=== PATIENT | male | born 1990 | race Caucasian/White ===

== ENCOUNTER 2020-05-21 15:28 | Emergency (ER) | payer OTHER, SELFPAY ==
[2020-05-21 15:30] VITALS: BP 160/111; PULSE 111; RESP 17; TEMP 36.7; O2SAT 95; BMI 40.5
[2020-05-21 15:45] VITALS: BP 163/104; PULSE 113; RESP 21; O2SAT 97
--- NOTE | 2020-05-21 15:46 | EKG12_ITS ---
Test Reason : CP Blood Pressure : / mmHG Vent. Rate : 112 BPM Atrial Rate : 112 BPM P-R Int : 158 ms QRS Dur : 080 ms QT Int : 330 ms P-R-T Axes : 055 070 047 degrees QTc Int : 450 ms Sinus tachycardia Nonspecific ST and T wave abnormality Abnormal ECG Confirmed by TOMMY ANDRADE, JOSE LUIS ([id number]), editorial assistant CURT ASTORGA ([id number]) on 05/28/2020 9:13:38 AM Referred By: EMILY Confirmed By:PINO SANDERS MD
--- NOTE | 2020-05-21 15:47 | NURSING ---
NO OLD EKGS
--- NOTE | 2020-05-21 15:48 | ED.VIS.GEN ---
History of Present Illness Chief Complaint: Chest Pain Informant: Patient Onset: Weeks Context: Sudden Onset Timing: Intermittent Quality: Pain, pressure and tightness Location: Mid to left chest Current Severity: Mild Maximum Severity: Moderate Worsened by: Nothing specific Relieved by: Better with activity Associated Symptoms: Anxiousness, dyspnea Narrative: Patient is 30-year-old male has not seen a physician in some time. He reports a 60 pound weight gain over a year.. He is not been as active. He denies history of VTE. He denies leg pain, swelling discoloration. He reports a discomfort in his chest best described as a tight pressure sensation from the mid to left chest. There is no radiation to the back, neck, jaw or shoulders. He does report shortness of breath. [place] orthopnea or PND. He denies any infectious symptoms and denies specifically contact with anyone with Covid. His speech is slightly slurred. Asked if he has been drinking today. He states he may have a buzz. He does admit to 1 glass of wine a day. He denies history of alcoholic liver disease or pancreatitis. He denies black or maroon stool. He denies mucus or blood in his stool. Prior similar symptoms: No Recent Illness/Hospitalization: No - Past Medical History (1) No significant past medical history Status: Acute Past Medical History - Allergies and Home Meds Allergies/Adverse Reactions: Allergies No Known Allergies Allergy (Verified 05/21/20 15:29) Primary Care Physician: Kade Pires III, MD [Primary Care Provider] - Prior records reviewed: No Past Medical History: None Surgical History: no surgical history Lives: Alone Smoking Status: Smoker, status unknown Alcohol: Occasional Drugs: None Physical Exam Vital Signs/Narrative: Vital Signs Temp Pulse Resp BP Pulse Ox 05/21/20 15:45 113 H 21 H 163/104 H 97 05/21/20 15:30 98.1 F 111 H 17 160/111 H 95 Inital Vital Signs reviewed: Yes General: Well nourished, Well developed, Obese Head: Normocephalic, Atraumatic Eyes: Perrl, EOMI. Negative for: Pale conjunctiva, Scleral icterus ENT: No rhinorrhea, TM's clear Neck: Supple, Nontender, No lymphadenopathy, No JVD Cardiovascular: Regular rhythm, No murmurs, Normal S1, Normal S2, Tachycardia Respiratory: No distress, CTA bilaterally, Chest nontender, - - Patient's respiratory rate is 22-28. Abdomen: Soft, Nontender, Nondistended, Normal bowel sounds, No masses Rectal: Deferred Back: Nontender, Normal Inspection Extremities: Nontender, No edema, - - There is no asymmetry, swelling, discoloration, leg vein distention, palpable cords or tenderness along the distribution of the deep venous system.. Negative for: Tenderness Skin: Normal color, No rash, No Trauma. Negative for: Cyanosis, Diaphoresis, Jaundice Neurological: Alert, Oriented x3, Cranial nerves II-XII grossly intact, Normal Strength, Normal Sensation Psychological: Normal affect Diagnostic/Tx/Re-eval Chest X-Ray - ED: 2 View, Read by ED Physician, Normal, Heart, Lungs, Mediastinum, Bony Structures, No Acute Disease, - - 2 view chest x-ray was interpreted by me at 1610. Impressions Chest X-Ray 05/21/20 16:05 IMPRESSION: Normal x-ray examination of the chest. Electronically Signed: Flory Roy, at 16:18 EST Tel , Service support , 05/21/20 16:05 Chest PA and Lateral [RAD] Stat Laboratory Results 05/21/20 05/21/20 05/21/20 15:59 15:59 15:59 WBC 6.4 RBC 5.31 Hgb 16.9 H Hct 47.7 MCV 89.8 MCH 31.8 MCHC 35.4 RDW Std Deviation 39.3 RDW Coeff of Addison 12.1 Plt Count 236 MPV 10.2 Immature Gran % (Auto) 0.200 Neut % (Auto) 51.8 Lymph % (Auto) 37.2 [place] % (Auto) 8.1 Eos % (Auto) 1.9 Baso % (Auto) 0.8 Absolute Neuts (auto) 3.3 Absolute Lymphs (auto) 2.38 Nucleated RBC % 0 D-Dimer Quant (PE/DVT) 0.44 Sodium 140 Potassium 3.2 L Chloride 103 Carbon Dioxide 24.0 Anion Gap 13 BUN 7 Creatinine 0.89 Estim Creat Clear Calc 142.39 Est GFR (MDRD) Af Amer 130 Est GFR (MDRD) Non-Af 108 BUN/Creatinine Ratio 7.9 L Glucose 136 H Calcium 8.8 Total Bilirubin 0.90 AST 125 H ALT 149 H Alkaline Phosphatase 169 H Troponin I < 0.015 B-Natriuretic Peptide Total Protein 7.8 Albumin 3.7 Globulin 4.1 Albumin/Globulin Ratio 0.9 Lipase 111 05/21/20 15:59 WBC RBC Hgb Hct MCV MCH MCHC RDW Std Deviation RDW Coeff of Addison Plt Count MPV Immature Gran % (Auto) Neut % (Auto) Lymph % (Auto) [place] % (Auto) Eos % (Auto) Baso % (Auto) Absolute Neuts (auto) Absolute Lymphs (auto) Nucleated RBC % D-Dimer Quant (PE/DVT) Sodium Potassium Chloride Carbon Dioxide Anion Gap BUN Creatinine Estim Creat Clear Calc Est GFR (MDRD) Af Amer Est GFR (MDRD) Non-Af BUN/Creatinine Ratio Glucose Calcium Total Bilirubin AST ALT Alkaline Phosphatase Troponin I B-Natriuretic Peptide 2.9 Total Protein Albumin Globulin Albumin/Globulin Ratio Lipase Was informed of his blood test. BNP is 2.9. This would indicate no evidence of heart failure. Troponin is normal. D-dimer was normal. This rules out cardiac ischemia and PE. Patient's liver enzymes are elevated and most likely due to the fact that he drinks on a regular basis. - EKG Initial EKG Interpretation: Sinus Tachycardia - Sinus tachycardia with a ventricular rate of 112. UT interval 108 ms. QRS duration 86 ms. QT duration 330 ms. [place] is normal. There is nonspecific ST-T wave changes noted predominantly in the anterior leads. There is also artifact noted throughout. He has a biphasic T wave in V3 through V5. - Medical Decision Making Differential diagnosis includes cardiac etiology and cardiac ischemia, pulmonary embolus, pulmonary hypertension, noncardiac etiology which would include pulmonary GI. EKG, chest x-ray, troponin and appropriate labs were obtained. Patient's blood pressure is elevated. He states he was in a long-term relationship and his brother did make, he snores. Plan is to start hydrochlorothiazide and follow-up with In 1 to 3 weeks for recheck. ED Disposition - Plan for ED Patient: Disposition: Home or Assisted Living Diagnosis: Hypertension, essential, Sinus tachycardia by electrocardiogram, Left-sided chest pain, Elevated liver transaminase level Prescriptions: Hydrochlorothiazide [Hctz] 12.5 mg PO DAILY #30 tab Transmission Status: [facility] [facility] Referrals: Kade Pires III, MD [Primary Care Provider] - 1-2 Weeks Additional Instructions: 1. It is in your best interest to add no salt to your food and decrease salt when cooking 2. It is in your best interest to lose weight. 3. If you have any new or concerning symptoms please return to the emergency department
--- NOTE | 2020-05-21 16:05 | RAD_ITS ---
STUDY: X-RAY CHEST REASON FOR EXAM: Male, 30 years old. chest pressure and dyspnea TECHNIQUE: Frontal and lateral views of the chest. COMPARISON: None. FINDINGS: The lungs are clear and expanded. There is no demonstrated pleural abnormality. Normal size heart. Normal mediastinum and cholo. Normal visualized pulmonary arteries. Normal visualized aortic arch and descending thoracic aorta. Normal visualized thoracic spine. Normal visualized ribs, clavicles, and shoulders. There is no demonstrated abnormality of the visualized soft tissue structures of the upper abdomen. RAD/Chest PA and Lateral IMPRESSION: Normal x-ray examination of the chest. Electronically Signed: Flory Roy, at 16:18 EST Tel , Service support ,
[2020-05-21 16:15] LABS: Absolute Lymphocyte Count 2.38 X10^3/uL (0.83-4.51); Absolute Neutrophil Count 3.3 X10^3/uL (2.0-7.7); Basophil# 0.05 X10^3/uL; Basophil% 0.8 % (0-1); Eosinophil# 0.12 X10^3/uL; Eosinophils% 1.9 % (0-5); Hematocrit 47.7 % (40-54); Hemoglobin 16.9 g/dL (13.0-16.5); Lymphocyte # 2.38 X10^3/ul (4.0); Lymphocyte % 37.2 % (19-41); Mean Corp Hgb Conc 35.4 g/dL (32-36); Mean Corpuscular Hgb 31.8 pg (27.0-32.0); Mean Corpuscular Volume 89.8 fL (80-94); Mean Platelet Vol. 10.2 fl (6.2-12.0); Monocyte# 0.52 X10^3/uL; Monocyte% 8.1 % (0-10); NRBC Flagged by Analyzer 0 % (0-5); Neutrophil # 3.32 X10^3/uL (2.7-7.7); Neutrophil % 51.8 % (47-70); Platelet Count 236 K/mm3 (150-450); RBC Distribution Width CV 12.1 % (11.6-14.6); RBC Distribution Width SD 39.3 fl (35.1-43.9); Red Blood Count 5.31 M/mm3 (4.6-6.2); White Blood Count 6.4 K/mm3 (4.4-11.0)
[2020-05-21 16:26] LABS: D-Dimer Quantitative (DVT/PE) 0.44 FEU/ug/m (0.27-0.49)
[2020-05-21 16:28] LABS: ALB/GLOB Ratio 0.9 RATIO (0.9-2.4); AST(SGOT) 125 U/L (15-37); Alanine Aminotransfer ALT/SGPT 149 U/L (16-61); Albumin, Serum 3.7 g/dL (3.2-5.0); Alkaline Phosphatase 169 U/L (45-117); Anion Gap 13 (5-15); BUN 7 mg/dL (7-18); BUN/Creat Ratio 7.9 RATIO (10-20); Calcium,Total 8.8 mg/dL (8.5-10.1); Chloride 103 mmol/L (98-107); Creatinine, Serum 0.89 mg/dL (0.70-1.30); EST Glomerular Filtration Rate 108 mL/min (>60); Est Glom Filt Rate - Afr Amer 130 mL/min (>60); Estimated Creatinine Clearance 142.39 ml/min; Globulin 4.1 g/dL (2.2-4.2); Glucose 136 mg/dL (74-106); Lipase 111 U/L (73-393); Potassium 3.2 mmol/L (3.5-5.1); Protein, Total 7.8 g/dL (6.4-8.2); Sodium Level 140 mmol/L (136-145)
[2020-05-21 16:37] LABS: BNP,B-Type NATRIURETIC PEPTIDE 2.9 pg/mL (0-100)
--- NOTE | 2020-05-21 16:56 | ED.VISSUMM ---
- ER Visit Summary Date of Service: 05/21/20 Chief Complaint: [] History of Present Illness: The patient is a 30 M [] Physical Examination: [] Test Results: [] Emergency Department Course and Treatment: [] Treatment Plan: [] Disposition: [] Impression: [] This note was generated with [employer] ([employer] dictation software. It may contain incorrect words, spelling, and punctuation that were not noted in review of the chart prior to signing ED Disposition - Plan for ED Patient: Disposition: Home or Assisted Living Diagnosis: Hypertension, essential, Sinus tachycardia by electrocardiogram, Left-sided chest pain, Elevated liver transaminase level Instructions: ED Hypertension, New (Begin Treatment) Prescriptions: Hydrochlorothiazide [Hctz] 12.5 mg PO DAILY #30 tab Transmission Status: Pending to [facility] Referrals: Kade Pires III, MD [Primary Care Provider] - 1-2 Weeks Additional Instructions: 1. It is in your best interest to add no salt to your food and decrease salt when cooking 2. It is in your best interest to lose weight. 3. If you have any new or concerning symptoms please return to the emergency department
[2020-05-21 16:58] VITALS: BP 154/97; PULSE 103; RESP 22; O2SAT 96
== END 2020-05-21 17:05 | disposition home or self-care (01) ==
PROVIDERS: Emergency Provider Emergency Medicine; PCP Family Medicine
DX: I10 Essential (primary) hypertension (principal); R00.0 Tachycardia, unspecified; R07.89 Other chest pain; R74.01 Elevation of levels of liver transaminase levels; E66.9 Obesity, unspecified
CPT/HCPCS: 71046; 80053; 83690; 83880; 84484; 85025; 85379; 93005; 99284; A4216

== ENCOUNTER 2022-05-06 15:01 | Inpatient (IN) | payer SELFPAY ==
[2022-05-06] VITALS (7 sets, daily range): BP systolic 141–178; BP diastolic 87–102; PULSE 94–111; RESP 16–26; TEMP 36–38.1; O2SAT 95–97; BMI 33.3
--- NOTE | 2022-05-06 15:25 | EDS_ITS ---
HPI History of Present Illness Chief Complaint: Substance Abuse Detail of Chief Complaint: Alcohol abuse/withdrawal Informant: patient Narrative Narrative: Patient presents to the emergency department complaint of not feeling well for last 24 hours. Patient states that he is going through alcohol withdrawal. Patient's been drinking a bottle of vodka daily for the last month. Patient's last drink was 12 hours ago. Patient denies any other drug use. Denies chest pain. He has had nausea and vomiting. He describes soreness in the lateral aspects of his abdomen from all the retching and vomiting. Patient has never gone through detox before. [facility] Medical History (Updated 05/06/22 @ 16:[address] Christ Han, DO) H/O ETOH abuse Home Medications NK 05/06/22 [History Last Taken Unknown] Allergy/AdvReac Type Severity Reaction Status Date / Time No Known Allergies Allergy Verified 05/06/22 15:02 Social History Smoking Status: Light Smoker (<10/day) ROS ROS ED Review of Systems ROS Unobtainable: other Constitutional Constitutional ED: Reports lethargy; Denies chills, fever(s), sweats or weight loss Eyes Eyes: Denies blurry vision, change in vision or diplopia ENT ENT ED: Denies rhinorrhea or sore throat Cardiovascular Cardiovascular: Denies chest pain, orthopnea or racing heartbeat Respiratory/Chest Respiratory/Chest: Denies cough, dyspnea, dyspnea on exertion, orthopnea or sputum Gastrointestinal Gastrointestinal: Reports abdominal pain, nausea and vomiting; Denies diarrhea Genitourinary Genitourinary ED: Denies dysuria, hematuria or urinary frequency Musculoskeletal Musculoskeletal: Denies arthralgias, back pain, myalgias or neck pain Integumentary Denies abscess, Abrasions or rash Neurologic Neurologic: Denies headache(s) or weakness Psychiatric Psychiatric: Denies anxiety, depression or suicidal thoughts Endocrine Endocrinology: Denies polydipsia, polyphagia or polyuria Hematologic/Lymphatic Hematologic/Lymphatic: Denies easy bleeding, easy bruising or lymphadenopathy Allergic/Immunologic Allergic/Immunologic ED: Denies mouth swelling, tongue swelling or urticaria EXAM Physical Exam Narrative Exam Narrative: Patient diaphoretic Const Vital Signs: 05/06/22 15:02 05/06/22 16:06 Temperature 96.8 F L Temperature Source Temporal Pulse Rate 111 H 100 Respiratory Rate 26 H 22 H Blood Pressure 178/102 H Blood Pressure Mean 127 Pulse Ox 97 Oxygen Delivery Method Room Air Room Air Positive well nourished and well developed General Appearance ED: well developed and NAD HEENT Reports TM's clear and moist mucous membranes normocephalic and atraumatic; Negative for trauma or tenderness Tympanic Membrane ED: Yes TM's clear Eyes PERRL and EOMs intact bilaterally General Eye ED: Negative for pale conjunctiva or scleral icterus Neck no lymphadenopathy, supple and no JVD General: Negative for tenderness Chest Wall inspection of chest normal and palpation of chest normal Chest: Negative for tenderness Resp normal respiratory effort and clear to auscultation bilaterally Resp Narrative: Mild tachypnea. No accessory muscle use or retractions. Effort and Inspection: Negative for respiratory distress or pain with movement Auscultation: Negative for rhonchi, wheezes or diminished lung sounds Cardio regular rhythm, S1 normal heart sound, S2 normal heart sound and no murmurs Rate: tachycardic Peripheral Pulses: pulses 2+ throughout GI normal to inspection, nondistended, normoactive bowel sounds, soft to palpation, non-tender, non-distended and no masses Back/Spine no CVA tenderness and no thoracic nor lumbar tenderness Extremity normal to inspection General Extremety ED: Negative for edema General Extremity: Negative for edema Neuro oriented x3, CN's II-XII intact bilaterally, no sensory deficits noted and gait normal Neuro Narrative: Patient shaky Sensorium / Orientation: awake, alert, oriented to person, oriented to place and oriented to time Motor Exam: strength 5/5 throughout and strength abnormal Psych mental status grossly normal Skin no rashes or lesions noted and no wounds MDM MDM MDM Narrative Medical decision making narrative: IV line established. Patient was given normal saline. Patient was given Zofran 4 mg IV and given Ativan 1 mg IV. Lab work-up was obtained and showed a white blood cell count of 4.2 hemoglobin 15. Platelet count was 91. Chemistries showed a potassium of 2.9 for which I did give him 40 mEq of potassium chloride p.o. Patient did have elevation of his LFTs. Lipase was 337. Case will be discussed with hospitalist evaluate patient for admission for alcohol abuse and alcohol withdrawal. Lab Data Attestation: I reviewed the patient's lab results. Labs: Laboratory Results - last 24 hr 05/06/22 05/06/22 15:23 15:23 WBC 4.2 L RBC 4.68 Hgb 14.8 Hct 44.0 MCV 94.0 MCH 31.6 MCHC 33.6 RDW Std Deviation 46.9 H RDW Coeff of [place] 13.6 Plt Count 91 L MPV 10.2 Immature Gran % (Auto) 0.500 Neut % (Auto) 75.8 H Lymph % (Auto) 10.8 L [place] % (Auto) 12.0 H Eos % (Auto) 0.2 Baso % (Auto) 0.7 Absolute Neuts (auto) 3.2 Absolute Lymphs (auto) 0.45 L Nucleated RBC % 0 Sodium 138 Potassium 2.9 L Chloride 96 L Carbon Dioxide 29.0 Anion Gap 13 BUN 5 L Creatinine 0.80 Estim Creat Clear Calc 155.55 Est GFR (MDRD) Af Amer 145 Est GFR (MDRD) Non-Af 120 BUN/Creatinine Ratio 6.2 L Glucose 249 H Calcium 9.4 Total Bilirubin 4.50 H AST 199 H ALT 86 H Alkaline Phosphatase 133 H Total Protein 8.7 H Albumin 4.0 Globulin 4.7 H Albumin/Globulin Ratio 0.9 Lipase 337 Discharge Plan Triage Chief Complaint: Substance Abuse ED Provider: Crhist Han Dx/Rx/DC Orders Clinical Impression: Alcohol abuse, Alcohol withdrawal, Admitted to alcohol detoxification center, Acute hypokalemia, Thrombocytopenia, Elevated liver enzymes Prescriptions: No Action NK Primary Care Provider: Care Physician,No Primary Referrals: [facility] Doctor,Out of [Non-Staff] - Disposition [facility]
[2022-05-06] MEDS: Ondansetron 4 MG/2 ML Vial IV (15:33)
[2022-05-06] MEDS: LORazepam 2 MG/ML Syringe 1 MG IV (15:33)
[2022-05-06] MEDS: 0.9% Normal Saline 1,000 ML 1000 ML IV (15:33)
[2022-05-06 15:36] LABS: Absolute Lymphocyte Count 0.45 X10^3/uL (0.83-4.51); Absolute Neutrophil Count 3.2 X10^3/uL (2.0-7.7); Basophil# 0.03 X10^3/uL; Basophil% 0.7 % (0-1); Eosinophil# 0.01 X10^3/uL; Eosinophils% 0.2 % (0-5); Hemoglobin 14.8 g/dL (13.0-16.5); Lymphocyte # 0.45 X10^3/ul (0.83-4.51); Lymphocyte % 10.8 % (19-41); Mean Corp Hgb Conc 33.6 g/dL (32-36); Mean Corpuscular Hgb 31.6 pg (27.0-32.0); Mean Platelet Vol. 10.2 fl (6.2-12.0); NRBC Flagged by Analyzer 0 % (0-5); Neutrophil # 3.17 X10^3/uL (2.7-7.7); Neutrophil % 75.8 % (47-70); POSITIVE COUNT YES; POSITIVE DIFFERENTIAL YES; Platelet Count 91 K/mm3 (150-450); RBC Distribution Width CV 13.6 % (11.6-14.6); RBC Distribution Width SD 46.9 fl (35.1-43.9); Red Blood Count 4.68 M/mm3 (4.6-6.2); White Blood Count 4.2 K/mm3 (4.4-11.0)
[2022-05-06 15:38] LABS: Differential Indicated SCAN CRITERIA MET
[2022-05-06 15:47] LABS: ALB/GLOB Ratio 0.9 RATIO (0.9-2.4); AST(SGOT) 199 U/L (15-37); Alanine Aminotransfer ALT/SGPT 86 U/L (16-61); Alkaline Phosphatase 133 U/L (45-117); Anion Gap 13 (5-15); BUN 5 mg/dL (7-18); BUN/Creat Ratio 6.2 RATIO (10-20); Calcium,Total 9.4 mg/dL (8.5-10.1); Chloride 96 mmol/L (98-107); EST Glomerular Filtration Rate 120 mL/min (>60); Est Glom Filt Rate - Afr Amer 145 mL/min (>60); Estimated Creatinine Clearance 155.55 ml/min; Globulin 4.7 g/dL (2.2-4.2); Glucose 249 mg/dL (74-106); Lipase 337 U/L (73-393); Potassium 2.9 mmol/L (3.5-5.1); Protein, Total 8.7 g/dL (6.4-8.2); Sodium Level 138 mmol/L (136-145)
--- NOTE | 2022-05-06 16:05 | NURSING ---
DR YARELY MARTINEZ
[2022-05-06 16:06] LABS: Anisocytosis RARE; Macrocytosis RARE; Platelet Estimate SLT DEC (ADEQ); Red Cell Morphology N CHROM NORMAL (NORM C&C)
--- NOTE | 2022-05-06 16:09 | NURSING ---
MED SURG YARELY ETOH ABUSE, ETOH WITHDRAWAL
--- NOTE | 2022-05-06 16:10 | HP.PCM.HOS_ITS ---
HPI - General General Date of Admission: 05/06/22 Date of Service: 05/06/22 Chief Complaint: Acute alcohol withdrawal HPI Narrative JITENDRA LEBLANC, is a 32 M who presented emergency department was coming hospital on 05/06/2022 and acute alcohol withdrawal requesting detox. Patient's last drink was approximately 12 hours prior to presentation and he states he is currently drinking anywhere between 40 and 60 drinks weekly. He has been doing this for approximately the last month. He has been drinking fairly heavily since college however it is really become a problem in the last month. He has never had any significant withdrawal symptoms but has never stopped drinking. He is never been through detox program previously. He admits to very minimal tobacco use and denies any other drug use. Vital signs on presentation emergency department show a temperature of 96.8, heart rate 111, blood pressure 178/102, respiratory rate of 26 and oxygen saturation of 97% on room air. His CBC shows a slight leukopenia with a white count of 4.2 and thrombocytopenia with a platelet count of 91,000. Coagulations were pending on admission. His chemistry panel showed hypokalemia with potassium of 2.9, blood glucose of 249, total bilirubin of 4.5, AST 199, and ALT of 86. Alk phos was 133. A lipase was obtained and was found to be 337. Patient expressed a desire for detox and was given 1 mg of IV Ativan in the emergency department by the emergency department physician. After my evaluation we gave him another 2 mg and will start phenobarbital as soon as he gets the medical floor. [facility] Medical History (Updated 05/06/22 @ 16:50 by Nannette Khan) CPAP (continuous positive airway pressure) dependence Elevated blood sugar H/O ETOH abuse Sleep apnea Home Medications NK 05/06/22 [History Last Taken Unknown] Allergy/AdvReac Type Severity Reaction Status Date / Time No Known Allergies Allergy Verified 05/06/22 15:02 Family History (Updated 05/06/22 @ 16:[address] Kathryn Senior DO) Other CAD (coronary artery disease) Diabetes Hypertension no surgical history Social History (Updated 05/06/22 @ 16:[address] Kathryn Senior DO) current occupational status: unemployed Smoking Status: Light Smoker (<10/day) alcohol intake: current alcohol intake frequency: 3 or more drinks per day Alcohol type: hard liquor substance use type: does not use ROS Constitutional Constitutional: Reports chills and malaise; Denies anorexia, change in weight, fatigue, fever(s), night sweats, weakness or other Eyes Eyes: Denies blurry vision, change in eye color, change in vision, discharge from eye(s), double vision, erythema, eye pain, loss of vision or other ENT HEENT: Denies abnormal hearing, dysphagia, ear pain, epistaxis, headache(s), hearing loss, nasal congestion, nasal discharge, post nasal drip, sinus pressure, sore throat or other Cardiovascular Cardiovascular: Denies chest pain, claudication, dyspnea on exertion, edema, lightheadedness, orthopnea, palpitations, paroxysmal nocturnal dyspnea, rapid heart rate, syncope or other Respiratory/Chest Respiratory/Chest: Reports shortness of breath at rest and shortness of breath with exertion; Denies cough, dyspnea, excessive phlegm production, hemoptysis, productive cough, wheezing or other Gastrointestinal Gastrointestinal: Reports abdominal pain, nausea and vomiting; Denies coffee ground emesis, constipation, diarrhea, dyspepsia, hematemesis, hematochezia, loose stools, melena or other Genitourinary Genitourinary: Denies burning urination, difficulty urinating, dysuria, hematuria, nocturia, urinary frequency, urinary hesitancy, urinary incontinence, urinary urgency or other Musculoskeletal Musculoskeletal: Denies arthralgias, back pain, joint pain, joint stiffness, joint swelling, myalgias, neck pain or other Neurologic Neurologic: Reports tremor(s); Denies abnormal gait, abnormal speech, confusion, disequilibrium, dizziness, focal weakness, headache(s), numbness, paresthesias, seizure-like activity, seizures, syncope, tingling or other Psychiatric Psychiatric: Reports anxiety and depression; Denies homicidal ideation, suicidal ideation or other Endocrine Endocrinology: Denies change in body appearance, cold intolerance, excessive sweating, heat intolerance, polydipsia, polyuria or other Hematologic/Lymphatic Hematologic/Lymphatic: Denies anemia, easy bleeding, easy bruising, lymphadenopathy or other Allergic/Immunologic Allergic/Immunologic: Denies rhinitis, hives, eczemia, asthma or other Vital Signs Vital Signs Vital Signs: 05/06/22 15:02 05/06/22 16:06 Temperature 96.8 F L Temperature Source Temporal Pulse Rate 111 H 100 Respiratory Rate 26 H 22 H Blood Pressure 178/102 H Blood Pressure Mean 127 Pulse Ox 97 Oxygen Delivery Method Room Air Room Air Weight Weight: 117.934 kg Body Mass Index (BMI) 33.3 Physical Exam Const alert, oriented x3 and well nourished Constitutional Narrative: Young age male sitting up in bed with significant tremor, appears uncomfortable but nontoxic, father at bedside General Appearance: cooperative HEENT normocephalic, head/scalp atraumatic, hearing grossly normal bilaterally and kanchan st oral mucous membranes HEENT Narrative: Mallampati 2, no thrush, dentition is good Eyes PERRL, EOMs intact bilaterally and conjunctivae normal Eyes Narrative: Some scleral injection bilaterally with mild icterus Neck no lymphadenopathy and supple Neck Narrative: Acute midline, no thyroid enlargement Resp no retractions, no use of accessory muscles and clear to auscultation bilaterally Resp Narrative: Tachypnea Auscultation: Negative for crackles, rhonchi or wheezes Cardio regular rhythm, S1 normal heart sound, S2 normal heart sound, no murmurs, no rub, no gallops, no clicks and no JVD Cardio Narrative: Very mild tachycardia GI normal to inspection, nondistended, normoactive bowel sounds and soft to palpation GI Narrative: Mild diffuse tenderness, no hepatomegaly Extremity no clubbing, cyanosis or edema Extremity Narrative: 2+ pedal pulses Skin no rashes or lesions noted, no wounds, skin turgor normal, no jaundice, no petechiae and no mottling Neuro oriented x3, CN's II-XII intact bilaterally, moves all extremities and no focal motor deficits Neuro Narrative: Severe tremor bilateral upper extremities Speech: speech normal Psych Psych Narrative: Affect is flat, eye contact is good Results Lab / Micro Data Result Diagrams: 05/06/22 15:23 05/06/22 15:23 Labs: Laboratory Results - last 24 hr 05/06/22 15:23: WBC 4.2 L, RBC 4.68, Hgb 14.8, Hct 44.0, MCV 94.0, MCH 31.6, MCHC 33.6, RDW Std Deviation 46.9 H, RDW Coeff of Addison 13.6, Plt Count 91 L, MPV 10.2, Immature Gran % (Auto) 0.500, Neut % (Auto) 75.8 H, Lymph % (Auto) 10.8 L, [place] % (Auto) 12.0 H, Eos % (Auto) 0.2, Baso % (Auto) 0.7, Absolute Neuts (auto) 3.2, Absolute Lymphs (auto) 0.45 L, Nucleated RBC % 0, Differential Comment SEE COMMENT, Diff Path Review May foll, Platelet Estimate SLT DEC, RBC Morphology N CHROM, Anisocytosis RARE, Macrocytosis RARE 05/06/22 15:23: Sodium 138, Potassium 2.9 L, Chloride 96 L, Carbon Dioxide 29.0, Anion Gap 13, BUN 5 L, Creatinine 0.80, Estim Creat Clear Calc 155.55, Est GFR (MDRD) Af Amer 145, Est GFR (MDRD) Non-Af 120, BUN/Creatinine Ratio 6.2 L, Glucose 249 H, Calcium 9.4, Total Bilirubin 4.50 H, AST 199 H, ALT 86 H, Alkaline Phosphatase 133 H, Total Protein 8.7 H, Albumin 4.0, Globulin 4.7 H, Albumin/Globulin Ratio 0.9, Lipase 337 Assessment & Plan Assessment/Plan (1) Alcohol withdrawal: (2) Alcohol abuse: (3) Thrombocytopenia: (4) Acute hypokalemia: (5) Elevated liver enzymes: (6) Leukopenia: (7) Hyperbilirubinemia: (8) Hyperglycemia: (9) Elevated blood pressure reading: (10) Tachycardia: PLAN: Plan Acute alcohol withdrawal -Given Ativan x1 dose the emergency department -Start phenobarbital taper -Supportive medications withdrawal symptoms -CIWA protocol with as needed Ativan -180 consultation for discharge planning Thrombocytopenia/leukopenia -Likely related to marrow suppression with chronic alcohol use -We will repeat CBC in a.m. to assess for stability Transaminitis/hyperbilirubinemia -Exam and notices an alcohol pattern -Expect these will improve with alcohol cessation over time -Check Maddrey score after we obtain coags and if Madrey score is greater than or equal to 32 will initiate prednisone 40 mg daily for 30 days -Repeat in a.m. Elevated blood pressure/tachycardia -Likely related to acute withdrawal -We will treat withdrawal symptoms -If blood pressure remains elevated may need to add antihypertensives -As needed hydralazine available Hyperglycemia -Patient without history of diabetes -Check hemoglobin A1c -If A1c is elevated will start sliding scale insulin or more depend on level of elevation -Hold on insulin and Accu-Cheks at this time Acute hypokalemia -Patient was given 40 mill equivalents emergency department -I will give another 20 mill equivalents -Repeat BMP in a.m. -We will check a.m. mag level Tobacco abuse -Nicotine gum available -Recommend cessation DVT prophylaxis -Low risk -Early and frequent ambulation recommended CODE STATUS -Full code Charges/Coding Visit Charges Inpatient E&M: 17360 Init Hosp L3
[2022-05-06] MEDS: Potassium Chloride Oral Tablet 20 MEQ 40 MEQ PO (16:17)
[2022-05-06] MEDS: LORazepam 2 MG/ML Syringe IV (16:35)
[2022-05-06 17:01] LABS: International Normalized Ratio 1.1; Prothrombin Time (Protime)PT. 14.2 SECONDS (11.7-14.9)
[2022-05-06] MEDS: Potassium Chloride Oral Tablet 20 MEQ PO (18:11)
[2022-05-06] MEDS: Gabapentin 300 MG Capsule PO (18:11)
[2022-05-06] MEDS: Phenobarbital 32.4 MG Tablet 64.8 MG PO ×2 (18:11→22:24)
[2022-05-06] MEDS: Folic Acid 1 MG Tablet PO (18:13)
[2022-05-06] MEDS: LORazepam 1 MG Tablet 2 MG PO (18:21)
[2022-05-06 22:55] LABS: Bedside Glucose 192 mg/dL (74-106)
[2022-05-07 02:52] VITALS: BP 156/106; PULSE 92; RESP 18; TEMP 36.7; O2SAT 96
[2022-05-07] MEDS: Phenobarbital 32.4 MG Tablet 64.8 MG PO ×6 (02:53→22:49)
[2022-05-07 06:24] LABS: Absolute Lymphocyte Count 0.93 X10^3/uL (0.83-4.51); Absolute Neutrophil Count 2.4 X10^3/uL (2.0-7.7); Basophil# 0.03 X10^3/uL; Basophil% 0.8 % (0-1); Eosinophil# 0.09 X10^3/uL; Eosinophils% 2.3 % (0-5); Hematocrit 40.3 % (40-54); Hemoglobin 13.9 g/dL (13.0-16.5); Lymphocyte # 0.93 X10^3/ul (0.83-4.51); Lymphocyte % 23.3 % (19-41); Mean Corp Hgb Conc 34.5 g/dL (32-36); Mean Corpuscular Hgb 32.9 pg (27.0-32.0); Mean Corpuscular Volume 95.3 fL (80-94); Mean Platelet Vol. 11.1 fl (6.2-12.0); Monocyte# 0.53 X10^3/uL; Monocyte% 13.3 % (0-10); NRBC Flagged by Analyzer 0 % (0-5); POSITIVE COUNT YES; Platelet Count 84 K/mm3 (150-450); RBC Distribution Width CV 13.8 % (11.6-14.6); RBC Distribution Width SD 48.9 fl (35.1-43.9); Red Blood Count 4.23 M/mm3 (4.6-6.2)
[2022-05-07 06:30] VITALS: BP 173/95; PULSE 97; RESP 16; TEMP 37; O2SAT 94
[2022-05-07] MEDS: Insulin Lispro 100 UNIT/ML INSULN.PEN SC ×4 (06:52→22:15)
[2022-05-07 07:10] LABS: ALB/GLOB Ratio 0.8 RATIO (0.9-2.4); AST(SGOT) 126 U/L (15-37); Alanine Aminotransfer ALT/SGPT 63 U/L (16-61); Albumin, Serum 3.4 g/dL (3.2-5.0); Alkaline Phosphatase 112 U/L (45-117); Anion Gap 8 (5-15); BUN 5 mg/dL (7-18); Calcium,Total 8.9 mg/dL (8.5-10.1); Chloride 100 mmol/L (98-107); Creatinine, Serum 0.62 mg/dL (0.70-1.30); EST Glomerular Filtration Rate 159 mL/min (>60); Est Glom Filt Rate - Afr Amer 193 mL/min (>60); Estimated Creatinine Clearance 200.71 ml/min; Globulin 4.2 g/dL (2.2-4.2); Glucose 149 mg/dL (74-106); Magnesium 1.5 mg/dL (1.6-2.6); Phosphorus 2.6 mg/dL (2.5-4.9); Protein, Total 7.6 g/dL (6.4-8.2); Sodium Level 138 mmol/L (136-145)
--- NOTE | 2022-05-07 07:24 | PCM.PN.HOSP ---
Subjective Subjective Patient is a 32-year-old gentleman with history of chronic alcohol dependence admitted with acute alcohol withdrawal admitted to regular nursing floor where patient is currently being managed Objective Data Objective Data Vital Signs: Vital Signs Temp Pulse Resp BP Pulse Ox O2 Del Method 98.6 F 97 16 173/95 H 94 Room Air 05/07/22 06:30 05/07/22 06:30 05/07/22 06:30 05/07/22 06:30 05/07/22 06:30 05/07/22 06:30 Oxygen Delivery Method Room Air Weight: 117.526 kg Body Mass Index (BMI) 33.3 Intake & Output: Intake and Output for Last 24 Hours 05/05/22 05/06/22 05/07/22 23:59 23:59 23:59 Intake Total 1120 / 1120 Balance 1120 / 1120 Lab / Micro Data Result Diagrams: 05/07/22 05:59 05/07/22 05:59 Labs: Laboratory Results - last 24 hr 05/06/22 15:23: WBC 4.2 L, RBC 4.68, Hgb 14.8, Hct 44.0, MCV 94.0, MCH 31.6, MCHC 33.6, RDW Std Deviation 46.9 H, RDW Coeff of Addison 13.6, Plt Count 91 L, MPV 10.2, Immature Gran % (Auto) 0.500, Neut % (Auto) 75.8 H, Lymph % (Auto) 10.8 L, [place] % (Auto) 12.0 H, Eos % (Auto) 0.2, Baso % (Auto) 0.7, Absolute Neuts (auto) 3.2, Absolute Lymphs (auto) 0.45 L, Nucleated RBC % 0, Differential Comment SEE COMMENT, Diff Path Review May foll, Platelet Estimate SLT DEC, RBC Morphology N CHROM, Anisocytosis RARE, Macrocytosis RARE 05/06/22 15:23: Sodium 138, Potassium 2.9 L, Chloride 96 L, Carbon Dioxide 29.0, Anion Gap 13, BUN 5 L, Creatinine 0.80, Estim Creat Clear Calc 155.55, Est GFR (MDRD) Af Amer 145, Est GFR (MDRD) Non-Af 120, BUN/Creatinine Ratio 6.2 L, Glucose 249 H, Calcium 9.4, Total Bilirubin 4.50 H, AST 199 H, ALT 86 H, Alkaline Phosphatase 133 H, Total Protein 8.7 H, Albumin 4.0, Globulin 4.7 H, Albumin/Globulin Ratio 0.9, Lipase 337 05/06/22 15:23: Hemoglobin A1c 8.0 H 05/06/22 16:35: PT 14.2, INR 1.1 05/06/22 22:30: POC Glucose 192 H 05/07/22 05:59: WBC 4.0 L, RBC 4.23 L, Hgb 13.9, Hct 40.3, MCV 95.3 H, MCH 32.9 H, MCHC 34.5, RDW Std Deviation 48.9 H, RDW Coeff of Addison 13.8, Plt Count 84 L, MPV 11.1, Immature Gran % (Auto) 0.300, Neut % (Auto) 60.0, Lymph % (Auto) 23.3, [place] % (Auto) 13.3 H, Eos % (Auto) 2.3, Baso % (Auto) 0.8, Absolute Neuts (auto) 2.4, Absolute Lymphs (auto) 0.93, Nucleated RBC % 0 05/07/22 05:59: Sodium 138, Potassium 3.0 L, Chloride 100, Carbon Dioxide 30.0, Anion Gap 8, BUN 5 L, Creatinine 0.62 L, Estim Creat Clear Calc 200.71, Est GFR (MDRD) Af Amer 193, Est GFR (MDRD) Non-Af 159, BUN/Creatinine Ratio 8.0 L, Glucose 149 H, Calcium 8.9, Phosphorus 2.6, Magnesium 1.5 L, Total Bilirubin 4.90 H, AST 126 H, ALT 63 H, Alkaline Phosphatase 112, Total Protein 7.6, Albumin 3.4, Globulin 4.2, Albumin/Globulin Ratio 0.8 L Physical Exam Narrative GENERAL: cooperative HEENT: Atraumatic; normocephalic EYES; Anicteric, Normal Conjunctiva NECK; supple, normal thyroid, RESPIRATORY: Diminished to auscultation CARDIOVASCULAR: Regular S1 S2, GI: soft, normoactive bowel sounds, : No Renal angle tenderness; EXTREMITIES: No edema, no clubbing, MUSCULOSKELETAL: no muscle wasting NEURO: Awake; no lateralizing signs. SKIN: No Rash PSYCH; Flat affect Assessment & Plan Assessment/Plan (1) Alcohol withdrawal: (2) Alcohol abuse: (3) Thrombocytopenia: (4) Acute hypokalemia: (5) Elevated liver enzymes: (6) Leukopenia: (7) Hyperbilirubinemia: (8) Hyperglycemia: (9) Elevated blood pressure reading: (10) Tachycardia: PLAN: Plan Patient is a 32-year-old gentleman with history of chronic alcohol dependence admitted with acute alcohol withdrawal admitted to regular nursing floor where patient is currently being managed . Acute alcohol withdrawal ? Patient has been admitted to regular nursing floor managed with phenobarb taper 2. Thrombocytopenia ? Secondary to chronic alcohol use we will monitor 3. Leukopenia ? Secondary to chronic alcohol use we will continue with monitoring 4. Hypokalemia ? Corrected per protocol repeat labs ordered for monitoring 5. Acute transaminitis with hyperbilirubinemia Secondary to chronic alcohol use we will continue with monitoring 6. Hyperglycemia ? Secondary to new onset diabetes mellitus type 2. Patient hemoglobin A1c was 8. Patient started on Accu-Cheks before meals and at bedtime with sliding scale coverage with consultation placed to dietitian and diabetic education 7. Obesity with BMI of 33.3 ? Weight Loss Advised 8. Tobacco dependence - Counseled on cessation, offered nicotine patch for tobacco cravings 9. DVT prophylaxis -low risk did encourage early ambulation Charges/Coding Visit Charges Inpatient E&M: 62516 Subs Hosp L3
[2022-05-07] MEDS: Thiamine Hydrochloride 100 MG Tablet PO (07:56)
[2022-05-07] MEDS: Folic Acid 1 MG Tablet PO (07:56)
[2022-05-07 09:25] LABS: Bedside Glucose 158 mg/dL (74-106)
[2022-05-07 10:00] VITALS: BP 154/98; PULSE 105; RESP 18; TEMP 37.7; O2SAT 95
[2022-05-07 10:30] VITALS: BP 154/98; PULSE 105; RESP 18; TEMP 37.7; O2SAT 95
[2022-05-07] MEDS: Potassium Chloride Oral Tablet 20 MEQ PO ×2 (10:38→17:15)
[2022-05-07 11:40] LABS: Bedside Glucose 254 mg/dL (74-106)
--- NOTE | 2022-05-07 11:58 | ADDICTION ---
This creative writer met with PT to conduct ASAM, MSE, AUDIT, DUDIT assessments and to plan for d/c. PT A+Ox4 and participated actively. All assessments completed, and placed in PT's chart. PT plans to f/u with individual counselor at [facility] for [facility] outpatient treatment and counseling services. PT did not indicate a need for transportation post d/c from [facility].
[2022-05-07 14:00] VITALS: BP 159/112; PULSE 97; RESP 18; TEMP 37.6; O2SAT 98
[2022-05-07] MEDS: Gabapentin 300 MG Capsule PO (14:34)
[2022-05-07 15:40] LABS: Pathologist Review Reviewed
[2022-05-07 17:36] LABS: Bedside Glucose 181 mg/dL (74-106)
[2022-05-07 20:00] VITALS: BP 148/98; PULSE 97; RESP 17; TEMP 37.6; O2SAT 98
[2022-05-07 23:35] LABS: Bedside Glucose 151 mg/dL (74-106)
[2022-05-08] MEDS: Phenobarbital 32.4 MG Tablet 64.8 MG PO ×4 (02:30→15:08)
[2022-05-08 05:31] LABS: Absolute Neutrophil Count 2.7 X10^3/uL (2.0-7.7); Basophil# 0.06 X10^3/uL; Basophil% 1.4 % (0-1); Eosinophil# 0.13 X10^3/uL; Eosinophils% 2.9 % (0-5); Hematocrit 41.7 % (40-54); Hemoglobin 14.3 g/dL (13.0-16.5); Lymphocyte % 22.6 % (19-41); Mean Corp Hgb Conc 34.3 g/dL (32-36); Mean Corpuscular Hgb 32.8 pg (27.0-32.0); Mean Corpuscular Volume 95.6 fL (80-94); Mean Platelet Vol. 10.8 fl (6.2-12.0); Monocyte# 0.52 X10^3/uL; Monocyte% 11.7 % (0-10); NRBC Flagged by Analyzer 0 % (0-5); Neutrophil # 2.71 X10^3/uL (2.7-7.7); Neutrophil % 61.2 % (47-70); POSITIVE COUNT YES; Platelet Count 84 K/mm3 (150-450); RBC Distribution Width CV 13.4 % (11.6-14.6); RBC Distribution Width SD 47.8 fl (35.1-43.9); Red Blood Count 4.36 M/mm3 (4.6-6.2); White Blood Count 4.4 K/mm3 (4.4-11.0)
[2022-05-08 05:58] LABS: Anion Gap 5 (5-15); BUN 6 mg/dL (7-18); BUN/Creat Ratio 10.8 RATIO (10-20); Calcium,Total 9.1 mg/dL (8.5-10.1); Chloride 98 mmol/L (98-107); Creatinine, Serum 0.55 mg/dL (0.70-1.30); EST Glomerular Filtration Rate 183 mL/min (>60); Est Glom Filt Rate - Afr Amer 222 mL/min (>60); Estimated Creatinine Clearance 226.26 ml/min; Glucose 138 mg/dL (74-106); Magnesium 1.4 mg/dL (1.6-2.6); Phosphorus 2.3 mg/dL (2.5-4.9); Potassium 3.1 mmol/L (3.5-5.1); Sodium Level 133 mmol/L (136-145)
[2022-05-08 07:15] LABS: Bedside Glucose 143 mg/dL (74-106)
--- NOTE | 2022-05-08 10:00 | PCM.PN.HOSP ---
Subjective Subjective Patient seen still has some tremors at rest. He did insist on being discharged did automobile travel club counselor patient to stay for at least 1 more day Objective Data Objective Data Vital Signs: Vital Signs Temp Pulse Resp BP Pulse Ox O2 Del Method 99.7 F H 97 17 148/98 H 98 Room Air 05/07/22 20:00 05/07/22 20:00 05/07/22 20:00 05/07/22 20:00 05/07/22 20:00 05/08/22 07:54 Oxygen Delivery Method Room Air Weight: 117.5 kg Body Mass Index (BMI) 33.3 Intake & Output: Intake and Output for Last 24 Hours 05/06/22 05/07/22 05/08/22 23:59 23:59 23:59 Intake Total 1120 / 1120 700 / 700 Balance 1120 / 1120 700 / 700 Lab / Micro Data Result Diagrams: 05/08/22 04:50 05/08/22 04:50 Labs: Laboratory Results - last 24 hr 05/06/22 15:23: Diff Path Review Reviewed 05/07/22 10:59: POC Glucose 254 H 05/07/22 17:12: POC Glucose 181 H 05/07/22 22:11: POC Glucose 151 H 05/08/22 04:50: WBC 4.4, RBC 4.36 L, Hgb 14.3, Hct 41.7, MCV 95.6 H, MCH 32.8 H, MCHC 34.3, RDW Std Deviation 47.8 H, RDW Coeff of Addison 13.4, Plt Count 84 L, MPV 10.8, Immature Gran % (Auto) 0.200, Neut % (Auto) 61.2, Lymph % (Auto) 22.6, [place] % (Auto) 11.7 H, Eos % (Auto) 2.9, Baso % (Auto) 1.4 H, Absolute Neuts (auto) 2.7, Absolute Lymphs (auto) 1.00, Nucleated RBC % 0 05/08/22 04:50: Sodium 133 L, Potassium 3.1 L, Chloride 98, Carbon Dioxide 30.0, Anion Gap 5, BUN 6 L, Creatinine 0.55 L, Estim Creat Clear Calc 226.26, Est GFR (MDRD) Af Amer 222, Est GFR (MDRD) Non-Af 183, BUN/Creatinine Ratio 10.8, Glucose 138 H, Calcium 9.1, Phosphorus 2.3 L, Magnesium 1.4 L 05/08/22 06:53: POC Glucose 143 H Physical Exam Narrative GENERAL: cooperative HEENT: Atraumatic; normocephalic EYES; Anicteric, Normal Conjunctiva NECK; supple, normal thyroid, RESPIRATORY: Diminished to auscultation CARDIOVASCULAR: Regular S1 S2, GI: soft, normoactive bowel sounds, : No Renal angle tenderness; EXTREMITIES: No edema, no clubbing, MUSCULOSKELETAL: no muscle wasting NEURO: Awake; no lateralizing signs. SKIN: No Rash PSYCH; Flat affect Assessment & Plan Assessment/Plan (1) Alcohol withdrawal: (2) Alcohol abuse: (3) Thrombocytopenia: (4) Acute hypokalemia: (5) Elevated liver enzymes: (6) Leukopenia: (7) Hyperbilirubinemia: (8) Hyperglycemia: (9) Elevated blood pressure reading: (10) Tachycardia: PLAN: Plan Patient is a 32-year-old gentleman with history of chronic alcohol dependence admitted with acute alcohol withdrawal admitted to regular nursing floor where patient is currently being managed 1. Acute alcohol withdrawal ? Patient has been admitted to regular nursing floor managed with phenobarb taper ? 05/08/2022;Patient seen still has some tremors at rest. He did insist on being discharged did automobile travel club counselor patient to stay for at least 1 more d 2. Thrombocytopenia ? Secondary to chronic alcohol use we will monitor 3. Leukopenia ? Secondary to chronic alcohol use we will continue with monitoring 4. Hypokalemia ? Corrected per protocol repeat labs ordered for monitoring 5. Acute transaminitis with hyperbilirubinemia Secondary to chronic alcohol use we will continue with monitoring 6. Hyperglycemia ? Secondary to new onset diabetes mellitus type 2. Patient hemoglobin A1c was 8. Patient started on Accu-Cheks before meals and at bedtime with sliding scale coverage with consultation placed to dietitian and diabetic education 7. Obesity with BMI of 33.3 ? Weight Loss Advised 8. Tobacco dependence - Counseled on cessation, offered nicotine patch for tobacco cravings 9. DVT prophylaxis -low risk did encourage early ambulation Charges/Coding Visit Charges Inpatient E&M: 54385 Subs Hosp L2
[2022-05-08 10:05] VITALS: BP 153/104; PULSE 107; RESP 18; TEMP 37.1; O2SAT 95
[2022-05-08] MEDS: Potassium Chloride Oral Tablet 20 MEQ PO (10:09)
[2022-05-08] MEDS: Thiamine Hydrochloride 100 MG Tablet PO (10:09)
[2022-05-08] MEDS: Folic Acid 1 MG Tablet PO (10:09)
[2022-05-08] MEDS: Insulin Lispro 100 UNIT/ML INSULN.PEN SC (11:25)
[2022-05-08 11:45] LABS: Bedside Glucose 221 mg/dL (74-106)
--- NOTE | 2022-05-08 13:00 | CASEMGMT ---
Grover, Recruitment Manager notified PRAVEENA that patient has an appt on 05-12 at 9 with Roselyn Max on [place]. SW went to patient's room. Introduced self and role at [facility]. PRAVEENA provided patient with this information written down on paper. SW also asked patient if he has applied for Medicaid and he has not. Patient was interested in an application. PRAVEENA provided patient with a Medicaid application, information on [employer], [employer], [employer], and list of prescription assistance options. Keyonna Gonzalez DISTRICT DIRECTOR DORIAN
[2022-05-08 15:10] VITALS: BP 150/97; PULSE 92; RESP 18; TEMP 36.9; O2SAT 95
--- NOTE | 2022-05-08 19:03 | PCM.DC.SUM ---
Providers Date of Admission: 05/06/22 Date of Discharge: 05/08/22 Primary Care Physician: No Primary Care Phys Reason For Visit: ETOH DETOX / WITHDRAWAL Diagnosis Discharge Diagnosis (1) Alcohol withdrawal: Status: Acute Code(s): F10.939 - Alcohol use, unspecified with withdrawal, unspecified (2) Alcohol abuse: Status: Acute Code(s): F10.10 - Alcohol abuse, uncomplicated (3) Thrombocytopenia: Status: Acute Code(s): D69.6 - Thrombocytopenia, unspecified (4) Acute hypokalemia: Status: Acute Code(s): E87.6 - Hypokalemia (5) Elevated liver enzymes: Status: Acute Code(s): R74.8 - Abnormal levels of other serum enzymes (6) Leukopenia: Status: Acute Code(s): D72.819 - Decreased white blood cell count, unspecified (7) Hyperbilirubinemia: Status: Acute Code(s): E80.6 - Other disorders of bilirubin metabolism (8) Hyperglycemia: Status: Acute Code(s): R73.9 - Hyperglycemia, unspecified (9) Elevated blood pressure reading: Status: Acute Code(s): R03.0 - Elevated blood-pressure reading, without diagnosis of hypertension (10) Tachycardia: Status: Acute Code(s): R00.0 - Tachycardia, unspecified Plan Patient is a 32-year-old gentleman with history of chronic alcohol dependence admitted with acute alcohol withdrawal admitted to regular nursing floor where patient is currently being managed 1. Acute alcohol withdrawal ? Patient has been admitted to regular nursing floor managed with phenobarb taper ? 05/08/2022;Patient seen still has some tremors at rest. He did insist on being discharged did mental health counselor patient to stay for at least 1 more day - patient left AMA 2. Thrombocytopenia ? Secondary to chronic alcohol use we will monitor 3. Leukopenia ? Secondary to chronic alcohol use we will continue with monitoring 4. Hypokalemia ? Corrected per protocol repeat labs ordered for monitoring 5. Acute transaminitis with hyperbilirubinemia Secondary to chronic alcohol use we will continue with monitoring 6. Hyperglycemia ? Secondary to new onset diabetes mellitus type 2. Patient hemoglobin A1c was 8. Patient started on Accu-Cheks before meals and at bedtime with sliding scale coverage with consultation placed to dietitian and diabetic education 7. Obesity with BMI of 33.3 ? Weight Loss Advised 8. Tobacco dependence - Counseled on cessation, offered nicotine patch for tobacco cravings 9. DVT prophylaxis -low risk did encourage early ambulation Medications at Discharge Home Medications NK 05/06/22 Weight / BMI Weight Weight: 117.5 kg Body Mass Index (BMI) 33.3 ABG / Lab / Microbiology Data Result Diagrams: 05/08/22 04:50 05/08/22 04:50 Laboratory: Laboratory Results - last 24 hr 05/07/22 22:11: POC Glucose 151 H 05/08/22 04:50: WBC 4.4, RBC 4.36 L, Hgb 14.3, Hct 41.7, MCV 95.6 H, MCH 32.8 H, MCHC 34.3, RDW Std Deviation 47.8 H, RDW Coeff of Addison 13.4, Plt Count 84 L, MPV 10.8, Immature Gran % (Auto) 0.200, Neut % (Auto) 61.2, Lymph % (Auto) 22.6, [place] % (Auto) 11.7 H, Eos % (Auto) 2.9, Baso % (Auto) 1.4 H, Absolute Neuts (auto) 2.7, Absolute Lymphs (auto) 1.00, Nucleated RBC % 0 05/08/22 04:50: Sodium 133 L, Potassium 3.1 L, Chloride 98, Carbon Dioxide 30.0, Anion Gap 5, BUN 6 L, Creatinine 0.55 L, Estim Creat Clear Calc 226.26, Est GFR (MDRD) Af Amer 222, Est GFR (MDRD) Non-Af 183, BUN/Creatinine Ratio 10.8, Glucose 138 H, Calcium 9.1, Phosphorus 2.3 L, Magnesium 1.4 L 05/08/22 06:53: POC Glucose 143 H 05/08/22 11:16: POC Glucose 221 H Meaningful Use Info Meaningful Use Diagnoses (Choose all that apply): None applicable Discharge Plan Admission Admit Date/Time: 05/06/22 16:06 Attending Provider: Gabriel Wilkins Primary Care Provider: Care Physician,No Primary Consulting Providers: Kathryn Senior Discharge Orders/Prescriptions Prescriptions: No Action NK Referrals / Follow Up: Care Physician,No Primary [Primary Care Provider] - [facility] Doctor,Out of [Non-Staff] - Disposition Disposition (needs filled in before D/C Order can be placed): Against Medical Advice Charges/Coding Visit Charges Inpatient E&M: 49551 Disch Hosp
== END 2022-05-08 17:29 | disposition left against medical advice (07) | DRG 894 ==
LOC: ED 16:07 → PCU 16:43
PROVIDERS: Admitting Provider Internal Medicine; Emergency Provider Emergency Medicine; Visit Provider Internal Medicine
DX: F10.239 Alcohol dependence with withdrawal, unspecified (principal); D69.6 Thrombocytopenia, unspecified; E11.65 Type 2 diabetes mellitus with hyperglycemia; E80.6 Other disorders of bilirubin metabolism; D72.819 Decreased white blood cell count, unspecified; E66.9 Obesity, unspecified; F19.230 Other psychoactive substance dependence with withdrawal, uncomplicated; E87.6 Hypokalemia; F17.200 Nicotine dependence, unspecified, uncomplicated; R03.0 Elevated blood-pressure reading, without diagnosis of hypertension; R74.8 Abnormal levels of other serum enzymes; Z82.49 Family history of ischemic heart disease and other diseases of the circulatory system; Z68.33 Body mass index [BMI] 33.0-33.9, adult; R00.0 Tachycardia, unspecified; Y90.9 Presence of alcohol in blood, level not specified
CPT/HCPCS: 36415; 80048; 80053; 82962; 83036; 83690; 83735; 84100; 85025; 85610; 97802; 99285; J7030; A4216; J2405